=== PATIENT | male | born 1995 | race Caucasian/White ===

== ENCOUNTER 2020-10-17 11:00 | Outpatient (CLI) | payer OTHER, SELFPAY ==
--- NOTE | ~2020-10-17 | MR_ITS ---
EXAMINATION: MR shoulder RT wo con DATE: 10/17/2020 11:35 INDICATION: Right shoulder injury TECHNIQUE: Magnetic resonance imaging (MRI) of the right shoulder was performed without intravenous c ontrast. Sequences included axial PD-weighted FS FSE, coronal oblique PD-weighted FS FSE, coronal obl ique T2-weighted FS FSE, sagittal PD-weighted FS FSE, and sagittal T1-weighted SE. COMPARISON: None. FINDINGS: Coracoacromial arch: The acromion undersurface is curved in morphology (type II). Coracoacromial ligament is normal. Mild acromioclavicular osteoarthritis with mild subarticular cystic change at the lateral head of the clav icle.. Rotator cuff: The supraspinatus, infraspinatus and teres minor tendons are normal. The subscapularis tendon is norm al. Normal rotator cuff muscle bulk and signal. Biceps tendon, glenoid labrum and glenohumeral cartilage: Long head of the biceps tendon is normal. There is a tear at the anteroinferior glenoid labrum extend ing from the 3:00 to the 6:00 position with associated deep chondral flap tear extending from the 3:0 0-4:30 position of the anteroinferior glenoid. This would be consistent with a GLAD (glenoid labral a rticular disruption) injury. Linear increased signal extending to the middle glenohumeral ligament co nsistent with associated partial tear. There is an irregular cortical contour to the anteroinferior r im of the glenoid with suggestion of mild cystic change at the 5:00 position. There is however no sig nificant underlying marrow edema to suggest acute fracture. Remaining glenohumeral cartilage appears normal. Fluid: Small glenohumeral joint effusion with small amount of fluid collecting in the posterior recess as we ll as extending along the long head biceps tendon sheath. No loose osteochondral bodies. Small amount of fluid in the subacromial/subdeltoid bursa consistent with mild bursitis. Bones: There is mild marrow edema along the posterior superolateral aspect of the humeral head medial to the middle facet of the greater tuberosity underlying which appears to be a very shallow Hill-Sachs frac ture trough. No pathologic marrow replacing process. IMPRESSION: 1. 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 This includes mild edema along an age-indeterminate shallow Hill-Sachs fracture trough and an age-indeterminate GLAD lesion at the anteroinferior glenoid with t ear of the anteroinferior glenoid labrum and tissue deep chondral flap tear at the anteroinferior gle noid. Irregular cortical contour with suggestion of cystic change at the anteroinferior glenoid but w ithout associated marrow edema is consistent with a prior chronic injury. Reviewed, dictated and finalized at location B. IMPRESSION: 1. Constellation of findings consistent with a subacute or more likely recurren t subacute on chronic anterior glenohumeral dislocation injury. This includes m ild edema along an age-indeterminate shallow Hill-Sachs fracture trough and an age-indeterminate GLAD lesion at the anteroinferior glenoid with tear of the an teroinferior glenoid labrum and tissue deep chondral flap tear at the anteroinf erior glenoid. Irregular cortical contour with suggestion of cystic change at t he anteroinferior glenoid but without associated marrow edema is consistent wit h a prior chronic injury.
== END 2020-10-17 11:01 ==
PROVIDERS: PCP Internal Medicine; Visit Provider Physician Assistant Medical
DX: S49.91XA Unspecified injury of right shoulder and upper arm, initial encounter (principal); M24.811 Other specific joint derangements of right shoulder, not elsewhere classified
CPT/HCPCS: 73221

== ENCOUNTER 2022-11-03 07:00 | Outpatient (RCR) | payer OTHER, SELFPAY | END 2022-11-03 11:48 | disposition home or self-care (01) | LOC: ANHHIPT 07:00 | PROVIDERS: PCP Nurse Practitioner Family; Visit Provider Nurse Practitioner Family | DX: M54.30 Sciatica, unspecified side (principal); M54.50 Low back pain, unspecified | CPT/HCPCS: 99199 ==

== ENCOUNTER 2022-11-08 08:23 | Outpatient (CLI) | payer OTHER, SELFPAY ==
--- NOTE | ~2022-11-08 | CT_ITS ---
EXAMINATION: CT lumbar spine wo con DATE: 11/08/2022 08:41 INDICATION: Low back pain, sciatica TECHNIQUE: Computed tomography (CT) of the lumbar spine was performed without intravenous contrast. T he dose-length product (DLP) was 411.25 mGy-cm. Iterative reconstruction was used. COMPARISON: None FINDINGS: There are 2 mm of retrolisthesis of L4 on L5 and L5 on S1. There is no fracture. The verteb ral body heights are maintained. There is mild loss of intervertebral disc space height at L5-S1. Mil d posterior disc bulges are present at L4-5 and L5-S1. IMPRESSION: 1. Mild lumbar spondylosis without acute findings. Reviewed, dictated and finalized at location A.
== END 2022-11-08 08:24 | disposition home or self-care (01) ==
PROVIDERS: PCP Nurse Practitioner Family; Visit Provider Family Medicine
DX: M54.50 Low back pain, unspecified (principal); M54.30 Sciatica, unspecified side; M47.896 Other spondylosis, lumbar region
CPT/HCPCS: 72131